=== PATIENT | male | born 1935 | race Caucasian/White ===

== ENCOUNTER 2022-11-06 16:27 | Inpatient (IN) | payer OTHER ==
[~2022-11-06] VITALS: Ht 180.3 cm; Wt 90.7 kg
[~2022-11-06 16:27] MED LIST: ASPI325 PO; Aspirin EC81 MG PO; Benicar Hct 201 EACH PO; DEXA1; DONEPEZIL HCL10 MG PO; Diclofenac Sodi50 MG PO; GABA300 PO; LORCET HD 10-31 EACH PO; LOSA25 PO; MOTION RELIEF25 MG PO; Roxicodone5 MG PO; SIMV40 PO; TRAM50 PO; Toprol Xl25 MG PO
[2022-11-06 17:48] LABS: BASOPHILS ABSOLUTE AUTO 0.03 K/mm3 (0.00-0.23); BASOPHILS PERCENT AUTO 0 % (0-2); EOSINOPHILS ABSOLUTE AUTO 0.07 K/mm3 (0.00-0.68); EOSINOPHILS PERCENT AUTO 1 % (0-6); Hematocrit 38.5 % (37.0-53.0); Hemoglobin 12.9 g/dL (13.5-17.5); IMMATURE GRAN ABSOLUTE AUTO 0.05 K/mm3 (0.00-0.10); IMMATURE GRAN PERCENT AUTO 1 % (0-1); LYMPHOCYTES ABSOLUTE AUTO 1.31 K/mm3 (0.84-5.20); LYMPHOCYTES PERCENT AUTO 12 % (21-46); MONOCYTES ABSOLUTE AUTO 0.93 K/mm3 (0.16-1.47); MONOCYTES PERCENT AUTO 8 % (4-13); Mean Corpuscular HGB 32.4 pg (26.0-34.0); Mean Corpuscular HGB Conc 33.5 g/dL (31.5-36.5); Mean Corpuscular Volume 97 fL (80-100); Mean Platelet Volume 11.5 fL (9.1-12.4); NEUTROPHILS ABSOLUTE AUTO 8.64 K/mm3 (1.96-9.15); NEUTROPHILS PERCENT AUTO 78 % (41-73); Platelet Count 215 K/mm3 (150-400); RDW Coefficient Variation 12.9 % (11.7-14.2); RDW Standard Deviation 45.9 fL (35.1-46.3); Red Blood Cell Count 3.98 M/mm3 (4.30-5.90); White Blood Cell Count 11.03 K/mm3 (4.00-11.30)
[2022-11-06 18:09] LABS: Albumin, Blood 3.3 g/dL (3.4-5.0); Albumin/Globulin Ratio 0.9 (0.8-1.8); Bilirubin, Total 0.6 mg/dL (0.1-1.0); Bun/Creatinine Ratio 29.5 (12.0-20.0); Creatinine, Blood 1.46 mg/dL (0.60-1.20); Globulin, Blood 3.5 g/dL (2.2-4.0); Potassium, Blood 4.7 mmol/L (3.5-5.5); Total Protein, Blood 6.8 g/dL (6.4-8.2)
[2022-11-06 19:00] LABS: Base Excess Venous 1.7 mmol/L; Bicarbonate Venous 25.2 mmol/L (24.0-30.0); PCO2 Venous 43.9 mmHg (38-42); pH Blood Venous 7.39 (7.34-7.37)
[2022-11-06] MEDS ORDERED: ZOCOR20 MG PO (21:43)
[2022-11-06 22:02] LABS: Magnesium, Blood 1.7 mg/dL (1.6-2.4)
[2022-11-06 22:04] LABS: Thyroid Stimulating Hormone 1.83 uIU/mL (0.360-4.800)
[2022-11-06 22:07] VITALS: BP 135/80
[2022-11-06] MEDS ORDERED: OCUFLOX511 RIGHTEYE (22:20)
[2022-11-06] MEDS ORDERED: PREDNISOLONE ACE5 ML RIGHTEYE (22:23)
[2022-11-06] MEDS ORDERED: ARTIFICIAL TEAR15 M2 RIGHTEYE (22:34)
[2022-11-07 04:31] VITALS: BP 124/78
[2022-11-07 04:41] LABS: Hematocrit 36.3 % (37.0-53.0); Hemoglobin 12.3 g/dL (13.5-17.5); Mean Corpuscular HGB 32.7 pg (26.0-34.0); Mean Corpuscular HGB Conc 33.9 g/dL (31.5-36.5); Mean Corpuscular Volume 97 fL (80-100); Mean Platelet Volume 11.4 fL (9.1-12.4); Platelet Count 190 K/mm3 (150-400); RDW Coefficient Variation 12.9 % (11.7-14.2); RDW Standard Deviation 45.4 fL (35.1-46.3); Red Blood Cell Count 3.76 M/mm3 (4.30-5.90); White Blood Cell Count 10.71 K/mm3 (4.00-11.30)
[2022-11-07 05:06] LABS: Bun/Creatinine Ratio 30.2 (12.0-20.0); Calcium, Blood 8.9 mg/dL (8.5-10.1); Creatinine, Blood 1.29 mg/dL (0.60-1.20); Magnesium, Blood 1.6 mg/dL (1.6-2.4); Potassium, Blood 4.3 mmol/L (3.5-5.5)
--- NOTE | 2022-11-07 06:24 | NUR ---
ADMITTED AFTER 2200. PT IS A X1 ASSIST, LIVES IN A TRAIL[place] AND SEEMS THAT HE GETS AROUND INDEPENDENTLY AT HOME BY HOLDING FURNITURE, ETC. WILL USE FWW WHILE ADMITTED. AOX2 BUT CALLS APPROPRIATELY FOR TOILETING. SKIN CHECK PERFORMED WITH KAYLA Elizondo, NO SKIN ISSUES NOTED. MILD EDEMA BLE. TELE IN PLACE, TACHYCARDIC WITH ACTIVITY. RECENT CORNEAL TRANSPLANT, PT HAS EYE DROPS PRESCRIBED.
[2022-11-07 07:16] VITALS: BP 135/87
[2022-11-07 11:16] VITALS: BP 114/78
[2022-11-07 14:50] VITALS: BP 125/96
--- NOTE | 2022-11-07 15:28 | NUR ---
Spoke with RN Mariana Go. Pt has POLST on file with both the comfort measures only box and the limited treatment box checked. Pt may benefit from assistance updating POLST. Pt resting in bed upon arrival. Pt experiencing expressive aphasia and struggles with answering questions. Daughter Erendira at bedside. Pt and Erendira agreeable with completing new POLST and already know choices. Assisted with completing new POLST. Pt wishes are DNR and Limited Treatment. Offered therapeutic listening as daughter reports Pt's spouse (daughter's mom) approximately 3 years ago from cancer. Offered condolences and continued therapeutic listening. Daughter reports Pt lives with her. At baseline Pt is mostly independent of his ADLs. Erendira cooks and does Pt's laundry. Brief and gentle discussion regarding advanced care planning. Discussed the importance of planning for the future and educated on disease process including trajectory. Daughter expresses apprciation and report no other concerns at this time. Spoke with Pt's primary RN Ben and discussed case. Palliative Care will remain available
--- NOTE | 2022-11-07 17:52 | NUR ---
SHIFT SUMMARY: Remains A&O this shift. VSS, denies pain. Remains in afib with bbb and PVC on monitor. Lung sounds diminished with slight crackles west bases. Meds given as ordered. Continuous pulse ox and 2L NC. Up to bathroom with 1 person ast/fww. Gen weakness noted. Daughter states increased weakness x1 week INDIVIDUALIZED EDUCATION PLAN AIDE. Decreased appetite noted. Rounds with pt, daughter and Dr this shift with all questions answered. Fire safety rounds Q 1 hour completed. No further needs id or verbalized at this time. Will continue to monitor this shift.
[2022-11-07 19:09] VITALS: BP 127/83
[2022-11-08 04:35] VITALS: BP 126/88
--- NOTE | 2022-11-08 04:43 | NUR ---
SHIFT SUMMARY PATIENT HAD NO ACUTE CHANGES. AXOX 2 WITH HX OF DEMENTIA. ONE ASSIST W/FWW TO BR. ON 2L O2 NC. PIV REMAINS INTACT. TELE MONITOR AFIB 63. HOOPA. VSS/AFEBRILE. DENIES CHEST PAIN, SOB, AND N/V. FIRE SAFETY ROUND AND PREVENTION PROVIDED. CALL LIGHT IN REACH. BED IN LOWEST POSITION. WILL CONTINUE TO MONITOR UNTIL DAY SHIFT NURSE ASSUMES CARE.
[2022-11-08 07:33] VITALS: BP 137/80
[2022-11-08 08:09] LABS: BASOPHILS ABSOLUTE AUTO 0.04 K/mm3 (0.00-0.23); BASOPHILS PERCENT AUTO 0 % (0-2); EOSINOPHILS PERCENT AUTO 1 % (0-6); Hematocrit 41.5 % (37.0-53.0); Hemoglobin 14.2 g/dL (13.5-17.5); IMMATURE GRAN ABSOLUTE AUTO 0.08 K/mm3 (0.00-0.10); IMMATURE GRAN PERCENT AUTO 1 % (0-1); LYMPHOCYTES ABSOLUTE AUTO 1.16 K/mm3 (0.84-5.20); LYMPHOCYTES PERCENT AUTO 8 % (21-46); MONOCYTES PERCENT AUTO 9 % (4-13); Mean Corpuscular HGB 32.6 pg (26.0-34.0); Mean Corpuscular HGB Conc 34.2 g/dL (31.5-36.5); Mean Corpuscular Volume 95 fL (80-100); Mean Platelet Volume 11.3 fL (9.1-12.4); NEUTROPHILS PERCENT AUTO 81 % (41-73); Platelet Count 218 K/mm3 (150-400); RDW Coefficient Variation 12.6 % (11.7-14.2); RDW Standard Deviation 43.8 fL (35.1-46.3); Red Blood Cell Count 4.36 M/mm3 (4.30-5.90); White Blood Cell Count 13.88 K/mm3 (4.00-11.30)
[2022-11-08 08:26] LABS: Bun/Creatinine Ratio 20.7 (12.0-20.0); Calcium, Blood 9.5 mg/dL (8.5-10.1); Creatinine, Blood 1.88 mg/dL (0.60-1.20); Potassium, Blood 4.3 mmol/L (3.5-5.5)
[2022-11-08 14:08] LABS: Source, Urine Clean Catch
[2022-11-08 14:13] LABS: Appearance, Urine Clear (Clear); Bilirubin, Urine Neg (Neg); Blood, Urine 1+ (Neg); Color, Urine Pale Yellow (P-Yellow); Glucose Qualitative, Urine Neg (Neg); Ketones, Urine Neg (Neg); Leukocyte Esterase, Urine Neg (Neg); Nitrite, Urine Neg (Neg); Protein, Urine Neg (Neg); Specific Gravity, Urine 1.015 (1.003-1.022); Urobilinogen, Urine NORM (Normal)
[2022-11-08 14:21] LABS: Bacteria Rare /hpf; Hyaline Casts 0-2 /lpf (0-2); Red Blood Cells, Urine 0-2 /hpf (0-2); Squamous Epithelial Cells Not Seen /hpf (Few); White Blood Cells, Urine 0-2 /hpf (0-5)
--- NOTE | 2022-11-08 15:02 | NUR ---
SHIFT SUMMARY PT RESTING QUIETLY, BUT AWAKE AT START OF SHIFT. NO C/O. PT UP TO BTHRM USING FWW AND 1P ASSIST. HUSLIA, WITH HX OF DEMENTIA. P/T IN TO WORK WITH PT, BUT PT FEELING WEAK TODAY AND NOT WANTING PARTICIPATE MUCH. DR BARBOUR AND DR GOODRICH BOTH IN TO SEE PT. PT IS FORGETFUL AND UNABLE TO COMMUNICATE ACCURATELY. PT'S DAUGHTER IN THIS AM AND REMAINS AT BS. PT UP TO BTHRM MULTIPLE TIMES, WEARING HIMSELF OUT WITH ACTIVITY. PT ATTEMPTED TO USE URINAL AT BS EVERY FEW MINUTES FOR SEVERAL HOURS, BUT ONLY ABLE TO VOID SM AMTS IN URINAL, MOSTLY VOIDING ON BEDING AND SELF. PT'S GOWN AND LINENS CHANGED SEVERAL TIMES. PT THEN ASSISTED UP TO BTHRM AGAIN AND ABLE TO EMPTY BLADDER. PT NOW RESTING QUIETLY WITH EYES CLOSED. A-FIB ON TELE AT 81, PER MX TECH. BED ALARM ON FOR SAFETY. CALL LT IN REACH.
[2022-11-08 16:19] VITALS: BP 125/76
[2022-11-08 19:33] VITALS: BP 109/66
[2022-11-09 04:34] VITALS: BP 116/77
--- NOTE | 2022-11-09 04:50 | NUR ---
SHIFT SUMMARY PATIENT HAD NO ACUTE CHANGES. AXOX 2-3 AND FORGETFUL. ONE ASSIST TO BR W/FWW. ON 2L O2 NC. DENIES CHEST PAIN, SOB, AND N/V. EYE DROPS GIVEN PER SCHEDULE EMAR. PIV REMAINS INTACT. TELE MONITOR AFIB 90'S. VS/AFEBRILE. SLEPT MOST OF SHIFT. FIRE SAFETY AND EDUCATION REVIEWED IN ROUNDINGS. COOPERATIVE WITH CARE. CALL LIGHT IN REACH. BED IN LOWEST POSITION. WILL CONTINUE TO MONITOR UNTIL DAY SHIFT NURSE ASSUMES CARE.
[2022-11-09 05:34] LABS: BASOPHILS ABSOLUTE AUTO 0.04 K/mm3 (0.00-0.23); BASOPHILS PERCENT AUTO 0 % (0-2); EOSINOPHILS PERCENT AUTO 0 % (0-6); Hematocrit 39.5 % (37.0-53.0); Hemoglobin 13.5 g/dL (13.5-17.5); IMMATURE GRAN ABSOLUTE AUTO 0.18 K/mm3 (0.00-0.10); IMMATURE GRAN PERCENT AUTO 1 % (0-1); LYMPHOCYTES ABSOLUTE AUTO 1.27 K/mm3 (0.84-5.20); LYMPHOCYTES PERCENT AUTO 7 % (21-46); MONOCYTES ABSOLUTE AUTO 1.41 K/mm3 (0.16-1.47); MONOCYTES PERCENT AUTO 7 % (4-13); Mean Corpuscular HGB 32.4 pg (26.0-34.0); Mean Corpuscular HGB Conc 34.2 g/dL (31.5-36.5); Mean Corpuscular Volume 95 fL (80-100); Mean Platelet Volume 11.1 fL (9.1-12.4); NEUTROPHILS ABSOLUTE AUTO 16.44 K/mm3 (1.96-9.15); NEUTROPHILS PERCENT AUTO 85 % (41-73); Platelet Count 227 K/mm3 (150-400); RDW Coefficient Variation 12.7 % (11.7-14.2); RDW Standard Deviation 43.5 fL (35.1-46.3); Red Blood Cell Count 4.17 M/mm3 (4.30-5.90); White Blood Cell Count 19.34 K/mm3 (4.00-11.30)
[2022-11-09 06:03] LABS: Albumin, Blood 2.8 g/dL (3.4-5.0); Albumin/Globulin Ratio 0.8 (0.8-1.8); Bun/Creatinine Ratio 20.7 (12.0-20.0); Calcium, Blood 8.9 mg/dL (8.5-10.1); Creatinine, Blood 2.13 mg/dL (0.60-1.20); Globulin, Blood 3.7 g/dL (2.2-4.0); Potassium, Blood 3.7 mmol/L (3.5-5.5); Total Protein, Blood 6.5 g/dL (6.4-8.2)
[2022-11-09 07:22] VITALS: BP 121/77
[2022-11-09 13:32] LABS: Bun/Creatinine Ratio 20.4 (12.0-20.0); Creatinine, Blood 2.11 mg/dL (0.60-1.20); Potassium, Blood 3.8 mmol/L (3.5-5.5)
--- NOTE | 2022-11-09 14:40 | NUR ---
SHIFT SUMMARY PT RESTING QUIETLY, BUT AWAKE, DURING SHIFT REPORT. DENIED NEEDS, NO C/O. PT'S SON HERE EARLY THIS AM, PRIOR TO IMAGING FOR CXR. PT THEN ASSISTED UP TO BTHRM USING FWW AND SBA. PT'S MOBILITY IS A LITTLE BETTER TODAY THAN YESTERDAY. PT STILL NOT WANTING TO EAT MUCH AT ANY MEAL. PT'S DAUGHTER AND SON ASSISTED WITH FILLING OUT MENU, BUT HAS NOT SEEMED TO HELP. PT DRINKING FLUIDS WELL AND WILL DRINK SOME ENSURE, BUT IS DIFFICULT TO GET TO EAT. DR BARBOUR IN TO SEE PT; IVF'S INFUSING PER EMAR. PT TO WORK WITH THERAPY AND POSSIBLE D/C TOMORROW. PT HAS REMAINED A-FIB ON TELE WITH HR IN THE LOW 80'S; BETTER CONTROLED TODAY. PT HAS REMAINED ON RA TO PRESENT WITH BIOX ABOVE 90%. BED ALARM ON FOR SAFETY. CALL LT IN REACH. ALL FAMILY REMAIN IN RM AT BS TO PRESENT.
[2022-11-09 15:48] VITALS: BP 124/78
[2022-11-09 19:36] VITALS: BP 133/84
[2022-11-10 03:35] VITALS: BP 109/79
--- NOTE | 2022-11-10 04:12 | NUR ---
SHIFT SUMMARY PATIENT HAD NO ACUTE CHANGES. AXOX 2 AND 1-2 ASSIST TO BR W/FWW AND GB. DENIES CHEST PAIN, SOB, AND N/V. VSS/AFEBRILE. PIV REMAINS INTACT. TELE MONITOR AFIB 90'S. COOPERATIVE WITH CARE. CALL LIGHT IN REACH. BED IN LOWEST POSITION. WILL CONTINUE TO MONITOR UNTIL DAY SHIFT NURSE ASSUMES CARE.
[2022-11-10 04:53] LABS: BASOPHILS ABSOLUTE AUTO 0.03 K/mm3 (0.00-0.23); BASOPHILS PERCENT AUTO 0 % (0-2); EOSINOPHILS ABSOLUTE AUTO 0.01 K/mm3 (0.00-0.68); EOSINOPHILS PERCENT AUTO 0 % (0-6); Hematocrit 38.1 % (37.0-53.0); Hemoglobin 13.3 g/dL (13.5-17.5); IMMATURE GRAN ABSOLUTE AUTO 0.14 K/mm3 (0.00-0.10); IMMATURE GRAN PERCENT AUTO 1 % (0-1); LYMPHOCYTES PERCENT AUTO 7 % (21-46); MONOCYTES ABSOLUTE AUTO 1.39 K/mm3 (0.16-1.47); MONOCYTES PERCENT AUTO 7 % (4-13); Mean Corpuscular HGB 32.5 pg (26.0-34.0); Mean Corpuscular HGB Conc 34.9 g/dL (31.5-36.5); Mean Corpuscular Volume 93 fL (80-100); Mean Platelet Volume 11.1 fL (9.1-12.4); NEUTROPHILS ABSOLUTE AUTO 17.74 K/mm3 (1.96-9.15); NEUTROPHILS PERCENT AUTO 85 % (41-73); Platelet Count 270 K/mm3 (150-400); RDW Coefficient Variation 12.6 % (11.7-14.2); RDW Standard Deviation 43.5 fL (35.1-46.3); Red Blood Cell Count 4.09 M/mm3 (4.30-5.90); White Blood Cell Count 20.81 K/mm3 (4.00-11.30)
[2022-11-10 05:58] LABS: Bun/Creatinine Ratio 23.8 (12.0-20.0); Calcium, Blood 8.8 mg/dL (8.5-10.1); Creatinine, Blood 2.1 mg/dL (0.60-1.20); Potassium, Blood 3.7 mmol/L (3.5-5.5)
[2022-11-10 07:39] VITALS: BP 107/68
[2022-11-10 13:13] LABS: Calcium, Blood 8.7 mg/dL (8.5-10.1); Creatinine, Blood 1.92 mg/dL (0.60-1.20); Potassium, Blood 3.7 mmol/L (3.5-5.5)
[2022-11-10] MEDS ORDERED: ELIQUIS2.5 MG PO (14:46)
[2022-11-10] MEDS ORDERED: METO25ER PO (15:03)
[2022-11-10 15:21] VITALS: BP 108/72
--- NOTE | 2022-11-10 17:22 | NUR ---
PT DISCHARGED FROM THE UNIT. IV REMOVED. DISCARGE INSTRUCTIONS REVIEWED WITH PT AND SON. MEDICATIONS FAXED TO [facility]. INSTRUCTED ON FOLLOW UP APTS. PT LEFT UNIT VIA WHEEL CHAIR, SON TO DRIVE HOME
== END 2022-11-10 17:22 | disposition home health service (06) | DRG 308 ==
LOC: ER 16:27 → MEDS 16:28
PROVIDERS: Emergency Medicine; Family Medicine; Hospitalist; Nurse Practitioner Acute Care; ADMIT Student in an Organized Health Care Education/Training Program
DX: I48.91 Unspecified atrial fibrillation (principal); G93.41 Metabolic encephalopathy; I50.31 Acute diastolic (congestive) heart failure; J96.01 Acute respiratory failure with hypoxia; N17.9 Acute kidney failure, unspecified; I11.0 Hypertensive heart disease with heart failure; E78.5 Hyperlipidemia, unspecified; N40.0 Benign prostatic hyperplasia without lower urinary tract symptoms; Z66 Do not resuscitate; R77.8 Other specified abnormalities of plasma proteins; D72.829 Elevated white blood cell count, unspecified; G30.9 Alzheimer's disease, unspecified; F02.80 Dementia in other diseases classified elsewhere, unspecified severity, without behavioral disturbance, psychotic disturbance, mood disturbance, and anxiety; Z88.0 Allergy status to penicillin; Z79.899 Other long term (current) drug therapy; Z85.46 Personal history of malignant neoplasm of prostate; Z94.7 Corneal transplant status
CPT/HCPCS: 36415; 71045; 80048; 80053; 81001; 82803; 83735; 83880; 84145; 84443; 84484; 85025; 85027; 92610; 93005; 93010; 93306; 94762; 96365; 96374; 96375; 97110; 97116; 97162; 97530; 99285-25; A9270; G0378; J1940; J1956; J3475; J7050; J7120

== ENCOUNTER → 2022-12-17 | Outpatient (CLI) | payer OTHER ==
[~2022-12-17] MED LIST changes: +ARTIFICIAL TEAR15 M2 RIGHTEYE; +ELIQUIS2.5 MG PO; +METO25ER PO; +OCUFLOX511 RIGHTEYE; +PREDNISOLONE ACE5 ML RIGHTEYE; +ZOCOR20 MG PO
[2022-12-17 13:25] LABS: BASOPHILS ABSOLUTE AUTO 0.04 K/mm3 (0.00-0.23); BASOPHILS PERCENT AUTO 1 % (0-2); EOSINOPHILS ABSOLUTE AUTO 0.15 K/mm3 (0.00-0.68); EOSINOPHILS PERCENT AUTO 2 % (0-6); Hematocrit 34.2 % (37.0-53.0); Hemoglobin 11.3 g/dL (13.5-17.5); IMMATURE GRAN ABSOLUTE AUTO 0.03 K/mm3 (0.00-0.10); IMMATURE GRAN PERCENT AUTO 0 % (0-1); LYMPHOCYTES ABSOLUTE AUTO 1.54 K/mm3 (0.84-5.20); LYMPHOCYTES PERCENT AUTO 19 % (21-46); MONOCYTES ABSOLUTE AUTO 0.48 K/mm3 (0.16-1.47); MONOCYTES PERCENT AUTO 6 % (4-13); Mean Corpuscular HGB 31.9 pg (26.0-34.0); Mean Corpuscular Volume 97 fL (80-100); Mean Platelet Volume 10.4 fL (9.1-12.4); NEUTROPHILS ABSOLUTE AUTO 5.69 K/mm3 (1.96-9.15); NEUTROPHILS PERCENT AUTO 72 % (41-73); Platelet Count 274 K/mm3 (150-400); RDW Coefficient Variation 12.5 % (11.7-14.2); Red Blood Cell Count 3.54 M/mm3 (4.30-5.90); White Blood Cell Count 7.93 K/mm3 (4.00-11.30)
== END ==
LOC: LAB 11:32 → LAB SHORT 11:32
PROVIDERS: Physician Assistant
DX: R68.83 Chills (without fever) (principal)
CPT/HCPCS: 85025

== ENCOUNTER 2023-01-21 01:14 | Emergency (ER) | payer OTHER ==
[~2023-01-21] VITALS: Ht 180.3 cm; Wt 72.6 kg
[2023-01-21 01:45] LABS: BASOPHILS ABSOLUTE AUTO 0.04 K/mm3 (0.00-0.23); BASOPHILS PERCENT AUTO 0 % (0-2); EOSINOPHILS ABSOLUTE AUTO 0.07 K/mm3 (0.00-0.68); EOSINOPHILS PERCENT AUTO 1 % (0-6); Hematocrit 38.6 % (37.0-53.0); Hemoglobin 12.6 g/dL (13.5-17.5); IMMATURE GRAN ABSOLUTE AUTO 0.07 K/mm3 (0.00-0.10); IMMATURE GRAN PERCENT AUTO 1 % (0-1); LYMPHOCYTES ABSOLUTE AUTO 0.89 K/mm3 (0.84-5.20); LYMPHOCYTES PERCENT AUTO 6 % (21-46); MONOCYTES ABSOLUTE AUTO 0.72 K/mm3 (0.16-1.47); MONOCYTES PERCENT AUTO 5 % (4-13); Mean Corpuscular HGB 31.7 pg (26.0-34.0); Mean Corpuscular HGB Conc 32.6 g/dL (31.5-36.5); Mean Corpuscular Volume 97 fL (80-100); Mean Platelet Volume 10.6 fL (9.1-12.4); NEUTROPHILS ABSOLUTE AUTO 13.21 K/mm3 (1.96-9.15); NEUTROPHILS PERCENT AUTO 88 % (41-73); Platelet Count 262 K/mm3 (150-400); RDW Coefficient Variation 12.4 % (11.7-14.2); RDW Standard Deviation 44.5 fL (35.1-46.3); Red Blood Cell Count 3.98 M/mm3 (4.30-5.90)
[2023-01-21 01:57] LABS: Albumin, Blood 3.6 g/dL (3.4-5.0); Albumin/Globulin Ratio 1.1 (0.8-1.8); Bilirubin, Total 0.9 mg/dL (0.1-1.0); Bun/Creatinine Ratio 21.6 (12.0-20.0); Calcium, Blood 9.5 mg/dL (8.5-10.1); Creatinine, Blood 1.25 mg/dL (0.60-1.20); Globulin, Blood 3.4 g/dL (2.2-4.0); Potassium, Blood 4.3 mmol/L (3.5-5.5)
[2023-01-21 02:10] LABS: Magnesium, Blood 1.7 mg/dL (1.6-2.4); Phosphorus, Blood 2.6 mg/dL (2.5-4.9)
[2023-01-21 02:43] LABS: International Normalized Ratio 1.14; Prothrombin Time Results 11.9 Sec (9.7-11.5)
[2023-01-21] MEDS ORDERED: BACLOFEN10 M4 PO (02:49)
[2023-01-21] MEDS ORDERED: OXYC5 PO (02:50)
[2023-01-21 06:20] LABS: Source, Urine Voided
[2023-01-21 06:33] LABS: Appearance, Urine Clear (Clear); Bilirubin, Urine Neg (Neg); Blood, Urine 5+ (Neg); Color, Urine Yellow (P-Yellow); Glucose Qualitative, Urine Neg (Neg); Ketones, Urine Neg (Neg); Leukocyte Esterase, Urine Neg (Neg); Nitrite, Urine Neg (Neg); Protein, Urine 2+ (Neg); Urobilinogen, Urine NORM (Normal)
[2023-01-21] MEDS ORDERED: TAMSULOSIN HCL0.4 M1 PO (06:50)
[2023-01-21 06:51] LABS: Bacteria Not Seen /hpf; Squamous Epithelial Cells Not Seen /hpf (Few); White Blood Cells, Urine 0-2 /hpf (0-5)
[2023-01-21 07:20] VITALS: BP 109/75
== END 2023-01-21 07:34 | disposition home or self-care (01) ==
LOC: ER 01:14
PROVIDERS: Emergency Medicine
DX: E86.0 Dehydration (principal); R55 Syncope and collapse; I10 Essential (primary) hypertension; E78.5 Hyperlipidemia, unspecified; I48.91 Unspecified atrial fibrillation; F03.90 Unspecified dementia, unspecified severity, without behavioral disturbance, psychotic disturbance, mood disturbance, and anxiety; Z87.891 Personal history of nicotine dependence; Z88.0 Allergy status to penicillin; Z79.899 Other long term (current) drug therapy; Z79.01 Long term (current) use of anticoagulants; Z91.81 History of falling
CPT/HCPCS: 51701; 51798; 71045; 74177; 80053; 81001; 83735; 84100; 85025; 85610; 85730; 93005; 93010; 96360-59; 99285-25; J7030; Q9967